=== PATIENT | female | born 1940 | race Two or more races ===

== ENCOUNTER 2016-07-01 19:51 | Emergency (ER) | payer OTHER ==
[~2016-07-01] VITALS: Ht 154.9 cm; Wt 74.8 kg
[2016-07-01] MEDS ORDERED: SODIUM CHLORIDE 0.9% 1,000 ML IV ONE (20:30)
[2016-07-01] MEDS ORDERED: DIGOXIN (250MCG/ML) 2 ML AMPULE IV ONE (20:30)
[2016-07-01 20:35] LABS: Basophils # (auto) 0 uL; Basophils % (auto) 0.5 % (0.0-2.0); Eosinophils # (auto) 0.4 uL; Eosinophils % (auto) 5.3 % (0.0-7.0); Hematocrit 40.3 % (36.0-46.0); Hemoglobin 12.9 g/dL (12.2-16.2); Lymphocytes # (auto) 2.1 uL; Lymphocytes % (auto) 27.8 % (10.0-50.0); Mean Corpuscular Hemoglobin 29.5 pg (28.0-32.0); Mean Corpuscular Volume 92.3 fL (80.0-100.0); Monocytes # (auto) 0.7 uL; Monocytes % (auto) 9.5 % (0.0-12.0); Neutrophils # (auto) 4.2 uL; Neutrophils % (auto) 56.9 % (37.0-80.0); Platelet Count (auto) 239 10^3/uL (140-450); White Blood Cell 7.4 10^3/uL (4.4-10.8)
[2016-07-01 20:52] LABS: Urine RBC None Seen /hpf (0 - 4)
[2016-07-01 20:58] LABS: Albumin 3.2 g/dL (3.4-5.0); Anion Gap 8 (5-15); Aspartate Aminotransferase 18 U/L (15-37); BUN/Creatinine Ratio 19.2; Blood Urea Nitrogen 14 mg/dL (7-18); Calcium 8.2 mg/dL (8.5-10.1); Carbon Dioxide 25 mmol/L (21-32); Chloride 107 mmol/L (98-107); GFR African American 100 mL/min; GFR Non-African American 83 mL/min; Glucose 153 mg/dL (74-106); Magnesium 1.8 mg/dL (1.6-2.6); Potassium 3.5 mmol/L (3.5-5.1); Sodium 140 mmol/L (136-145)
[2016-07-01 21:03] LABS: Alkaline Phosphatase 98 U/L (45-117); Bilirubin, Total 0.3 mg/dL (0.2-1.0); Total Protein 8.1 g/dL (6.4-8.2)
[2016-07-01 21:10] LABS: Urine Bilirubin Negative (Negative); Urine Blood TRACE /uL (Negative); Urine Color Yellow (Yellow); Urine Glucose Normal (Normal); Urine Ketone Negative (Negative); Urine Nitrite Negative (Negative); Urine Squamous Epithelial Cell FEW /hpf (<5); Urine Urobilinogen Normal (Negative); Urine pH 6.5 (5.0-8.0)
[2016-07-02] MEDS ORDERED: DIGOXIN (250MCG/ML) 2 ML AMPULE IV ONE (05:00)
[2016-07-02] MEDS ORDERED: DILTIAZEM 125mg/125ml BAG KIT 125 ML IV ONE (05:15)
[2016-07-02] MEDS ORDERED: DILTIAZEM HCL 50 MG/10 ML VIAL IV ONE (06:07)
[2016-07-02] MEDS ORDERED: DILTIAZEM HCL 25 MG/5 ML VIAL IV ONE (06:07)
[2016-07-02 07:09] VITALS: BP 176/94
== END 2016-07-02 07:18 | disposition short-term general hospital (02) ==
LOC: EDUNIT# 19:51 → EDBD 19:51 → ER 21:31
DX: I48.91 Unspecified atrial fibrillation (principal); I10 Essential (primary) hypertension; E11.9 Type 2 diabetes mellitus without complications; Z88.6 Allergy status to analgesic agent; Z88.8 Allergy status to other drugs, medicaments and biological substances
CPT/HCPCS: 36415; 71010; 80053; 81001; 82962; 83735; 84484; 85025; 93005; 94761; 96361; 96365; 96375; 96376; 99285; J1160